=== PATIENT | male | born 1990 | race Caucasian/White ===

== ENCOUNTER 2022-06-17 17:41 | Emergency (ER) | payer BC, SELFPAY ==
[2022-06-17 17:42] VITALS: BP 127/86; PULSE 96; RESP 16; TEMP 36.7; O2SAT 98; BMI 26.4
--- NOTE | 2022-06-17 18:51 | HMH.EDEXTP ---
ED Disposition Clinical Impression: Cellulitis of left thigh Disposition: Home, Self-Care Condition on Discharge: Good Instructions: DI for Cellulitis -- Adult Additional Instructions: follow up here tomorrow for outpt u/s and results in ED Referrals: Provider,Referral, [Primary Care Provider] - - Critical Care Critical Care Time: No Attestation: On 06/17/22, the high probability of a clinically significant, sudden or life threatening deterioration of the following system(s) required my full and direct attention, intervention and personal management. The time I documented below is in addition to time spent performing reported procedures but includes the following listed in this critical care notation. Medical Decision Making - Medical Records Medical records reviewed: Yes: I reviewed the patient's medical records. - Jian Inquiry Pt receiving controlled substance: No Vital Signs: 06/17/22 17:42 Temperature 98.1 F Temperature Source Oral Pulse Rate [Left Radial] 96 H Respiratory Rate 16 Blood Pressure [Right Arm] 127/86 Blood Pressure Mean [Right Arm] 99 Blood Pressure Source [Right Arm] Automatic Cuff Blood Pressure Position [Right Arm] Sitting 02 Sat by Pulse Oximetry 98 Oxygen Delivery Method Room Air - Lab Data Lab Results 06/17/22 19:08: WBC 5.0, RBC 5.08, Hgb 16.4, Hct 49.9, MCV 98.3 H, MCH 32.4 H, MCHC 32.9, RDW 13.7, Plt Count 296, MPV 7.9, Neut % (Auto) 64.9, Lymph % (Auto) 24.2, [place] % (Auto) 7.7, Eos % (Auto) 1.3, Baso % (Auto) 1.9, Neut # (Auto) 3.2, Lymph # (Auto) 1.2, [place] # (Auto) 0.4, Eos # (Auto) 0.1, Baso # (Auto) 0.1 06/17/22 19:08: D-Dimer 1.06 H 06/17/22 19:08: Sodium 139, Potassium 4.3, Chloride 102, Carbon Dioxide 30, Anion Gap 11.3, BUN 12, Creatinine 1.20, Estimated Creat Clear 110, Estimated GFR 70, Est GFR ( Amer) 84, Glucose 114 H, Calcium 9.9, Total Bilirubin 0.6, AST 39, ALT 44, Alkaline Phosphatase 61, Total Protein 7.7, Albumin 4.7, Globulin 3.0, Albumin/Globulin Ratio 1.6 Result diagrams: 06/17/22 19:08 06/17/22 19:08 Orders (Tests/Meds): ED MEDICATIONS Discontinued Medications Generic Name Dose Route Start Last Admin Trade Name Donovan PRN Reason Stop Dose Admin Enoxaparin Sodium 90 mg 06/17/22 20:04 Enoxaparin 100mg/Ml Syringe SQ 06/17/22 20:05 ONCE ONE Medical Decision Narrative: no u/s avail, no PCP to f/u, vss, denies cp/soa, localized symptoms w/o ischemia, ok with plan to rx u/s tomorrow and f/u in ED Extremity Problem HPI - General Chief complaint: Extremity Problem,Nontraumatic Stated complaint: spot on L leg Time Seen by Provider: 06/17/22 18:12 Mode of Arrival: Ambulatory Limitations: No Limitations Description of Symptoms (Recalled from ER Triage Doc. by RN): Pt c/o redness, swelling and tightness in Lt knee since yesterday morning. Advises that approx 10-14 days ago he had a red, swollen area below the knee that was present for 2 days - History of Present Illness HPI Narrative: left medial thigh rash with pain and swelling few days, concerned for blood clot, no h/o same denies cp, soa Consistency: constant Location: left Quality: burning Radiation: none Relieving factors: nothing Exacerbating factors: nothing Associated symptoms: denies other symptoms - Related Data Allergies Allergy/AdvReac Type Severity Reaction Status Date / Time No Known Allergies Allergy Verified 06/17/22 18:50 [facility] History - Hepatitis A Screen Attestation statement:: This patient has been screened for Hepatitis A risk factors. ROS Obtained: Yes All systems reviewed & no additional complaints Physical Exam - General General appearance: alert, in no apparent distress - Respiratory Respiratory exam: Present: normal lung sounds bilaterally. Absent: respiratory distress, wheezes - Cardiovascular Cardiovascular exam: Present: regular rate, normal rhythm. Absent: tachycardia - Extremities Exam Extremit
--- NOTE | 2022-06-17 18:57 | PC.NURSE ---
LAB CALLED FOR BLOOD DRAW
[2022-06-17 19:16] LABS: Basophils # 0.1 K/mm3 (0-0.2); Basophils % 1.9 % (0.1-2.0); Eosinophils # 0.1 K/mm3 (0.0-0.4); Eosinophils % 1.3 % (0.1-12.0); Hematocrit 49.9 % (42.0-52.0); Hemoglobin 16.4 g/dL (14.1-18.0); Lymphocytes # 1.2 K/mm3 (0.7-4.5); Lymphocytes % 24.2 % (10-50); Mean Corpuscular HGB Conc 32.9 g/dL (31.8-35.4); Mean Corpuscular Hemoglobin 32.4 pg (27.0-31.2); Mean Corpuscular Volume 98.3 fl (80-94); Mean Platelet Volume 7.9 fl (7.4-10.4); Monocytes # 0.4 K/mm3 (0.1-1.0); Monocytes % 7.7 % (1.7-9.3); Neutrophils # 3.2 K/mm3 (1.8-7.8); Neutrophils % 64.9 % (37.0-80.0); Platelet Count 296 K/mm3 (142-424); Red Blood Count 5.08 M/mm3 (4.60-6.20); Red Cell Distribution Width 13.7 % (11.5-17.5)
[2022-06-17 19:29] LABS: Alanine Aminotransferase 44 U/L (12-78); Albumin Level 4.7 g/dl (3.5-5.0); Albumin/Globulin Ratio 1.6 (1.1-1.8); Alkaline Phosphatase 61 U/L (38-126); Anion Gap 11.3 mEq/L (5-15); Aspartate Amino Transferase 39 U/L (17-59); Bilirubin,Total 0.6 mg/dl (0.2-1.3); Blood Urea Nitrogen 12 mg/dl (9-20); Calcium 9.9 mg/dl (8.4-10.2); Carbon Dioxide 30 mmol/L (22.0-30.0); Chloride 102 mmol/L (98-107); Creatinine Clearance Estimated 110 mL/min (50-200); Estimated Glomerular Filt Rate 70 ml/min (>60); GFR (African American) 84 ML/MIN (>60); Glucose 114 mg/dl (74-100); Potassium 4.3 mmoL/L (3.5-5.1); Sodium 139 mmol/L (136-145); Total Protein,Serum 7.7 g/dl (6.3-8.2)
[2022-06-17 19:34] LABS: D-Dimer 1.06 ug/mL (0.0-0.5)
[2022-06-17 20:17] VITALS: BP 129/88; PULSE 86; RESP 18; TEMP 36.9; O2SAT 98
== END 2022-06-17 20:28 | disposition home or self-care (01) ==
PROVIDERS: Emergency Provider Emergency Medicine
DX: L03.116 Cellulitis of left lower limb (principal)
CPT/HCPCS: 36415; 80053; 85025; 85378; 96372; 99283

== ENCOUNTER → 2022-06-18 09:02 | Outpatient (CLI) | payer BC, SELFPAY ==
--- NOTE | 2022-06-18 | CA_ITS ---
FINAL REPORT CLINICAL HISTORY: Patient states 10 days ago a red, swollen place appeared on proximal, posterior calf of LLE. Denies trauma. States it felt like a muscle cramp. Then 2 days ago a similar spot appeared in the distal medial thigh of LLE. Patient takes no daily medications but did receive a Lovenox injection in the ER last night. FINDINGS: DUPLEX VENOUS SONOGRAPHY OF THE LEFT LOWER EXTREMITY Multiple transverse and longitudinal scans were performed of the femoropopliteal deep venous system, with augmentation and compression maneuvers. FINDINGS: Normal phasic flow was noted in the visualized deep venous system. No intraluminal increased echogenicity is noted to suggest thrombus. There is normal compression and augmentation of the venous structures. No abnormal venous collaterals are seen. Prominent venous varicosities are visualized. IMPRESSION: No evidence of deep venous thrombosis of the left lower extremity. Reviewed, Interpreted and Dictated by Britt Lozano MD Transcribed by Tiffany Tapia Authenticated and [facility]
== END ==
PROVIDERS: Visit Provider Emergency Medicine
DX: M25.562 Pain in left knee (principal); M25.462 Effusion, left knee; R09.89 Other specified symptoms and signs involving the circulatory and respiratory systems
CPT/HCPCS: 93971

== ENCOUNTER → 2022-07-01 08:34 | Outpatient (CLI) | payer BC, SELFPAY ==
--- NOTE | 2022-07-01 08:39 | CT_ITS ---
FINAL REPORT TECHNIQUE: After the administration of oral and intravenous contrast, axial images were obtained through the abdomen and pelvis by computed tomography. The study was performed with techniques to keep radiation dose as low as reasonably achievable, (ALARA). Individual dose reduction techniques using automated exposure control or adjustment of mA and/or kV according to the patient's size were employed. CLINICAL HISTORY: VARICOSE VEINS,PHLEBITIS FINDINGS: Abdomen: The lung bases are clear. There is a less than 1 cm cyst in the inferior right hepatic lobe. 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 The spleen is unremarkable. The adrenals are normal. The pancreas is unremarkable. There are several less than 3 mm nonobstructing renal stones. There is mild right renal atrophy and cortical thinning. The aorta is normal in caliber. There is no free fluid or adenopathy. Pelvis: The appendix is unremarkable. There are postoperative changes in the right inguinal region. There is bladder wall thickening, likely inflammatory. Venous varicosities are seen in the left inguinal region. There is no free fluid or adenopathy. 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 Bilateral nephrolithiasis. Reviewed, Interpreted and Dictated by Ramy Schroeder III, MD Transcribed by Aurora Jensen Authenticated and [facility]
== END ==
PROVIDERS: PCP Internal Medicine Adolescent Medicine; Visit Provider Internal Medicine Adolescent Medicine
DX: I80.9 Phlebitis and thrombophlebitis of unspecified site (principal); I83.11 Varicose veins of right lower extremity with inflammation; I83.12 Varicose veins of left lower extremity with inflammation
CPT/HCPCS: 74177; Q9967